=== PATIENT | female | born 1980 | race Caucasian/White ===

== ENCOUNTER → 2021-10-23 | Outpatient (CLI) | payer OTHER ==
[~2021-10-23] MED LIST: BENTYL20 MG PO; MULTIVITAMIN; PENTASA250 MG; PROBIOTIC; REMICADE; SUCRALFATE1 GM PO; TESSALON PERLE100 MG PO; Z.0.NEXIUM40 MG PO; ZOFRAN ODT4 MG PO; [UNRECOGNIZED DRUG - OTHER] PO
== END ==
LOC: RAD 14:43
PROVIDERS: ATTEND Family Medicine
DX: J20.8 Acute bronchitis due to other specified organisms (principal); R06.02 Shortness of breath
CPT/HCPCS: 71046